=== PATIENT | male | born 1965 | race African-American/Black ===

== ENCOUNTER 2016-09-28 09:40 | Day surgery (SDC) | payer OTHER ==
[2016-09-27 15:02] VITALS: BMI 22.1
[2016-09-28] MEDS ORDERED: PROPOFOL 20 ML ONE ×3 (10:04)
[2016-09-28 10:47] VITALS: TEMP 98.7
[2016-09-28 12:36] VITALS: BP 119/80; PULSE 64
--- NOTE | 2016-09-29 11:41 | PATH ---
Surgical Pathology Report Patient Name: RADHA RAMSAY [facility]. Rec. #: [id number] /Age/Gender: 1965 (Age: 50) / M Account: [id number] Location: [facility]-ENDOSCOPY Taken: 09/28/2016 Received: 09/28/2016 Reported: 09/29/2016 Physicians: Thom Rutherford D.O. Specimen(s) Received BX ANGULARIS/BODY Clinical History Abdominal pain Gastritis Final Diagnosis STOMACH, ANGULARIS AND BODY, BIOPSY: FOCAL MILD CHRONIC GASTRITIS. IMMUNOSTAIN FOR H. PYLORI IS NEGATIVE. Electronically Signed Satish Wetzel M.D. Gross Description Received in formalin, labeled "biopsy angularis/body" are 3 houston, irregular portions of soft tissue ranging from 0.2-0.3 cm. in greatest dimension. The specimens are submitted in toto in one cassette. /09/28/201609/28/2016
== END 2016-09-28 12:36 | disposition home or self-care (01) ==
LOC: JASU-ENDO 09:40
PROVIDERS: ATTEND Internal Medicine Gastroenterology
PROC: 0DB68ZX Excision of Stomach, Via Natural or Artificial Opening Endoscopic, Diagnostic (ICD-10-PCS; principal; 2016-09-28 10:00)
DX: K29.70 Gastritis, unspecified, without bleeding (principal); K31.89 Other diseases of stomach and duodenum
CPT/HCPCS: 88305-TC; 88342-TC

== ENCOUNTER 2016-10-26 09:35 | Day surgery (SDC) | payer OTHER ==
[2016-10-22 15:49] VITALS: BMI 20.9
[2016-10-26 10:51] VITALS: TEMP 97.6
[2016-10-26 11:54] VITALS: BP 115/75; PULSE 67
--- NOTE | 2016-10-27 11:38 | PATH ---
Surgical Pathology Report Patient Name: RADHA RAMSAY [facility]. Rec. #: [id number] /Age/Gender: 1965 (Age: 50) / M Account: [id number] Location: [facility]-ENDOSCOPY Taken: 10/26/2016 Received: 10/26/2016 Reported: 10/27/2016 Physicians: Thom Rutherford D.O. Specimen(s) Received A: CECAL COLON POLYP B: SIGMOID COLON POLYP Clinical History Screening Cecal polyp Final Diagnosis A. COLON, CECUM, POLYP, POLYPECTOMY: TUBULAR ADENOMA. Comment: The cauterized margin of resection appears negative for adenoma. Endoscopic correlations are suggested. B. COLON, SIGMOID, POLYP, POLYPECTOMY: TUBULAR ADENOMA. Electronically Signed Jim Watkins M.D. Gross Description A. Received in formalin labeled "cecal colon polyp" is a 1.0 x 0.7 x 0.6 cm pink-houston, polypoid portion of soft tissue. The base is inked blue and the specimen is bisected and entirely submitted in one cassette. B. Received in formalin, labeled "biopsy sigmoid colon polyp" is a houston, irregular portion of soft tissue measuring 0.4 cm in greatest dimension. The specimen is submitted in toto in one cassette. 10/26/201610/26/2016
== END 2016-10-26 11:54 | disposition home or self-care (01) ==
LOC: JASU-ENDO 09:35
PROVIDERS: ATTEND Internal Medicine Gastroenterology
PROC: 0DBN8ZX Excision of Sigmoid Colon, Via Natural or Artificial Opening Endoscopic, Diagnostic (ICD-10-PCS; 2016-10-26)
PROC: 0DBH8ZX Excision of Cecum, Via Natural or Artificial Opening Endoscopic, Diagnostic (ICD-10-PCS; principal; 2016-10-26 10:30)
DX: Z12.11 Encounter for screening for malignant neoplasm of colon (principal); D12.0 Benign neoplasm of cecum; D12.5 Benign neoplasm of sigmoid colon; K64.8 Other hemorrhoids
CPT/HCPCS: 88305-TC

== ENCOUNTER 2019-05-29 19:28 | Inpatient (IN) | payer OTHER ==
[2019-05-29 19:46] VITALS: BMI 21.4
[2019-05-29] MEDS ORDERED: SODIUM CHLORIDE 1,000 ML IV STA (20:15)
[2019-05-29] MEDS ORDERED: METOCLOPRAMIDE HCL INJECTION 10 MG/2 ML VIAL IVPUSH ONE (20:15)
[2019-05-29] MEDS ORDERED: FAMOTIDINE 20 MG/50 ML IVPB 20 MG/50 ML MG IVPB ONE ×2 (20:15→20:22)
[2019-05-29] MEDS ORDERED: ACETAMINOPHEN 1000 MG/100 ML VIAL (NON FORMULARY) IVPB ONE (20:15)
[2019-05-29] MEDS ORDERED: METOCLOPRAMIDE HCL INJECTION 10 MG/2 ML VIAL ONE (20:22)
[2019-05-29] MEDS ORDERED: ACETAMINOPHEN INJECTION 100 ML IVPB ONE (20:22)
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
[2019-05-29 21:21] LABS: BASO % 1.2 % (0-2.0); HEMOGLOBIN 14.6 GM/dL (11.7-16.9); LYMPH % 23.2 % (8-40); MCH 31.8 pg (25.7-33.7); MCHC 33.1 g/dl (32.0-35.9); MEAN PLT VOLUME 9.6 fl (7.5-11.1); MONO % 6.2 % (3.8-10.2); NEUT % 68.4 % (42.8-82.8); PLATELET COUNT 255 K/MM3 (134-434); RBC 4.58 M/mm3 (4.00-5.60); RDW 13.3 % (11.9-15.9); WHITE BLOOD COUNT 8.9 K/mm3 (4.0-10.0)
[2019-05-29 21:53] LABS: ALBUMIN 4.6 g/dl (3.4-5.0); BILIRUBIN,TOTAL 0.7 mg/dL (0.2-1); BLOOD UREA NITROGEN 20.5 mg/dL (7-18); CALCIUM 10.1 mg/dL (8.5-10.1); CREATININE 0.9 mg/dL (0.55-1.3); TOT PROT 8.4 g/dl (6.4-8.2)
[2019-05-29 21:54] LABS: POTASSIUM 4.2 mmol/L (3.5-5.1)
--- NOTE | 2019-05-30 02:31 | HP ---
<Kathya Mares - Last Filed: 05/30/19 02:41> CHIEF COMPLAINT: Abd pain, vomiting PCP: Dr. Louis Ugalde HISTORY OF PRESENT ILLNESS: Patient is a 53 year old male with PMH of open heart surgery (s/p trauma) and pancreatitis (2010 and 2016 2/2 alcoholism) who presents with progressive epigastric abd pain, nausea, and vomiting x4 months. Patient endorses GI issues since 2010 (he has had 2 bouts of pancreatitis in 2010 and 2016, caused by alcohol use). Several months ago, he began having progressive abd discomfort and vomiting after eating. He complains of constant nausea as well. Pt has lost about 30 pounds in past year. He has been following up with GI (Dr. Miguel) at [facility] for these symptoms since the summer and has received endoscopy, colonoscopy, and multiple imaging. He states that he has never been told of a diagnosis. Pt received an EUS last Tuesday but it was inconclusive due to gastric contents and test was rescheduled for next week. Over the past few days , pt's nausea, vomiting, and abd pain has worsened to the point that he can no longer eat at all, so he came to the ED. Pt denies hx of cancer. He reports that he quit drinking alcohol in the summer when his symptoms worsened. Only medication is occasionaly omeprazole which provides only mild relief of his epigastric pain. Recent Travel: denies PAST MEDICAL HISTORY: As per HPI PAST SURGICAL HISTORY: Open heart surgery s/p trauma Social History: Smokin/4 ppd x 40 year Alcohol: former alcoholic, sober x6 months Drugs: denies Allergies No Known Allergies Allergy (Verified 11/20/16 00:00) HOME MEDICATIONS: Home Medications Medication Instructions Recorded Ranitidine HCl [Zantac] 150 mg PO DAILY #0 tablet 09/28/16 REVIEW OF SYSTEMS CONSTITUTIONAL: loss of appetite, weight change Absent: fever, chills, diaphoresis, generalized weakness, malaise HEENT: Absent: rhinorrhea, nasal congestion, throat pain, throat swelling, difficulty swallowing, mouth swelling, ear pain, eye pain, visual changes CARDIOVASCULAR: Absent: chest pain, syncope, palpitations, irregular heart rate, lightheadedness , peripheral edema RESPIRATORY: Absent: cough, shortness of breath, dyspnea with exertion, orthopnea, wheezing, stridor, hemoptysis GASTROINTESTINAL: abdominal pain, vomiting, nausea Absent: abdominal distension, diarrhea, constipation, melena, hematochezia GENITOURINARY: Absent: dysuria, frequency, urgency, hesitancy, hematuria, flank pain, genital pain MUSCULOSKELETAL: Absent: myalgia, arthralgia, joint swelling, back pain, neck pain SKIN: Absent: rash, itching, pallor HEMATOLOGIC/IMMUNOLOGIC: Absent: easy bleeding, easy bruising, lymphadenopathy, frequent infections ENDOCRINE: Absent: unexplained weight gain, unexplained weight loss, heat intolerance, cold intolerance NEUROLOGIC: Absent: headache, focal weakness or paresthesias, dizziness, unsteady gait, seizure, mental status changes, bladder or bowel incontinence PSYCHIATRIC: Absent: anxiety, depression, suicidal or homicidal ideation, hallucinations. PHYSICAL EXAMINATION Vital Signs - 24 hr 05/29/19 19:40 Temperature 98.4 F Pulse Rate 89 Respiratory 20 Rate Blood Pressure 101/63 O2 Sat by Pulse 99 Oximetry (%) GENERAL: Awake, alert, and fully oriented, in no acute distress. Cachectic and thin appearing. HEAD: Normal with no signs of trauma. EYES: Pupils equal, round and reactive to light, extraocular movements intact, sclera anicteric, conjunctiva clear. No lid lag. EARS, NOSE, THROAT: Ears normal, nares patent, oropharynx clear without exudates. Moist mucous membranes. NECK: Normal range of motion, supple without lymphadenopathy, JVD, or masses. LUNGS: Breath sounds equal, clear to auscultation bilaterally. No wheezes, and no crackles. No accessory muscle use. HEART: Regular rate and rhythm, normal S1 and S2 without murmur, rub or gallop. ABDOMEN: Soft, nontender, not distended, normoactive bowel sounds, no guarding, no rebound, no masses. No hepatomegaly or splenomegaly. MUSCULOSKELETAL: Normal range of motion at all joints. No bony deformities or tenderness. No CVA tenderness. UPPER EXTREMITIES: 2+ pulses, warm, well-perfused. No cyanosis. No clubbing. No peripheral edema. LOWER EXTREMITIES: 2+ pulses, warm, well-perfused. No calf tenderness. No peripheral edema. NEUROLOGICAL: Cranial nerves II-XII intact. Normal speech. Normal gait. PSYCHIATRIC: Cooperative. Good eye contact. Appropriate mood and affect. SKIN: Warm, dry, normal turgor, no rashes or lesions noted, normal capillary refill. Laboratory Results - last 24 hr CBC, BMP 05/29/19 20:42 05/29/19 20:42 ASSESSMENT/PLAN: Patient is a 53 year old male with PMH of open heart surgery (s/p trauma) and pancreatitis (2010 and 2016 2/2 alcoholism) who presents with progressive epigastric abd pain, nausea, and vomiting x4 months. #Acute on chronic pancreatitis Progressive abd pain, nausea, vomiting and Lipase: 2856 CTAP w/contrast: fluid-filled convolued structure in medial aspect of pancreatic head. Nonspecific increased density within lumen of structure representing debris, inspissated bile/ sludge or soft tissue polypoid lesion. MRCP evaluation suggested. Moderate gastric overdistension. Trace pelvic free fluid. Interval development of intrahepatic and extrahepatic biliary tract dilatation. Increased dilatation of main pancreatic duct. Keep pt NPO, hydrate with IV LR @ 200ml/hr IV 2mg morphine prn for pain IV 40mg protonix BID IV zofran for nausea (pending EKG result for QTc) GI consultation (Dr. Bond) F/u triglycerides, lipid panel MRCP w/contrast for further investigation of CT findings #Alcohol abuse Pt has long history of alcohol abuse causing chronic pancreatitis, however reports he is now sober Will treat with thiamine and folate #Smoking hx Nicotine patch Encourage smoking cessation #FEN IV LR @200ml/hr NPO #DVT ppx Heparin sq #Dispo Monitor on med-surg ATTENDING PHYSICIAN STATEMENT I saw and evaluated the patient. I reviewed the resident's note and discussed the case with the resident. I agree with the resident's findings and plan as documented. SUBJECTIVE: OBJECTIVE: ASSESSMENT AND PLAN: <Aly Bowers - Last Filed: 05/30/19 07:10> CHIEF COMPLAINT: PCP: HISTORY OF PRESENT ILLNESS: ER course was notable for: (1) (2) (3) Recent Travel: PAST MEDICAL HISTORY: PAST SURGICAL HISTORY: Social History: Smoking: Alcohol: Drugs: Allergies No Known Allergies Allergy (Verified 11/20/16 00:00) HOME MEDICATIONS: Home Medications Medication Instructions Recorded Ranitidine HCl [Zantac] 150 mg PO DAILY #0 tablet 09/28/16 REVIEW OF SYSTEMS CONSTITUTIONAL: Absent: fever, chills, diaphoresis, generalized weakness, malaise, loss of appetite, weight change HEENT: Absent: rhinorrhea, nasal congestion, throat pain, throat swelling, difficulty swallowing, mouth swelling, ear pain, eye pain, visual changes CARDIOVASCULAR: Absent: chest pain, syncope, palpitations, irregular heart rate, lightheadedness , peripheral edema RESPIRATORY: Absent: cough, shortness of breath, dyspnea with exertion, orthopnea, wheezing, stridor, hemoptysis GASTROINTESTINAL: Absent: abdominal pain, abdominal distension, nausea, vomiting, diarrhea, constipation, melena, hematochezia GENITOURINARY: Absent: dysuria, frequency, urgency, hesitancy, hematuria, flank pain, genital pain MUSCULOSKELETAL: Absent: myalgia, arthralgia, joint swelling, back pain, neck pain SKIN: Absent: rash, itching, pallor HEMATOLOGIC/IMMUNOLOGIC: Absent: easy bleeding, easy bruising, lymphadenopathy, frequent infections ENDOCRINE: Absent: unexplained weight gain, unexplained weight loss, heat intolerance, cold intolerance NEUROLOGIC: Absent: headache, focal weakness or paresthesias, dizziness, unsteady gait, seizure, mental status changes, bladder or bowel incontinence PSYCHIATRIC: Absent: anxiety, depression, suicidal or homicidal ideation, hallucinations. PHYSICAL EXAMINATION Vital Signs - 24 hr 05/29/19 05/30/19 05/30/19 19:40 03:01 04:40 Temperature 98.4 F 98.2 F Pulse Rate 89 50 L Pulse Rate [ 86 Right] Respiratory 20 18 20 Rate Blood Pressure 101/63 100/64 Blood Pressure 107/73 [Right Arm] O2 Sat by Pulse 99 97 Oximetry (%) 05/30/19 05/30/19 05:02 05:04 Temperature Pulse Rate Pulse Rate [ Right] Respiratory 20 20 Rate Blood Pressure Blood Pressure [Right Arm] O2 Sat by Pulse 97 97 Oximetry (%) GENERAL: Awake, alert, and fully oriented, in no acute distress. HEAD: Normal with no signs of trauma. EYES: Pupils equal, round and reactive to light, extraocular movements intact, sclera anicteric, conjunctiva clear. No lid lag. EARS, NOSE, THROAT: Ears normal, nares patent, oropharynx clear without exudates. Moist mucous membranes. NECK: Normal range of motion, supple without lymphadenopathy, JVD, or masses. LUNGS: Breath sounds equal, clear to auscultation bilaterally. No wheezes, and no crackles. No accessory muscle use. HEART: Regular rate and rhythm, normal S1 and S2 without murmur, rub or gallop. ABDOMEN: Soft, nontender, not distended, normoactive bowel sounds, no guarding, no rebound, no masses. No hepatomegaly or splenomegaly. MUSCULOSKELETAL: Normal range of motion at all joints. No bony deformities or tenderness. No CVA tenderness. UPPER EXTREMITIES: 2+ pulses, warm, well-perfused. No cyanosis. No clubbing. No peripheral edema. LOWER EXTREMITIES: 2+ pulses, warm, well-perfused. No calf tenderness. No peripheral edema. NEUROLOGICAL: Cranial nerves II-XII intact. Normal speech. Normal gait. PSYCHIATRIC: Cooperative. Good eye contact. Appropriate mood and affect. SKIN: Warm, dry, normal turgor, no rashes or lesions noted, normal capillary refill. Laboratory Results - last 24 hr 05/29/19 05/29/19 05/29/19 20:42 20:42 20:42 WBC 8.9 RBC 4.58 Hgb 14.6 Hct 44.0 D MCV 96.0 MCH 31.8 MCHC 33.1 RDW 13.3 Plt Count 255 D MPV 9.6 Absolute Neuts (auto) 6.1 Neutrophils % 68.4 D Lymphocytes % 23.2 Monocytes % 6.2 Eosinophils % 1.0 Basophils % 1.2 Nucleated RBC % 0 Sodium 137 Potassium 4.2 Chloride 97 L Carbon Dioxide 33 H Anion Gap 6 L BUN 20.5 H Creatinine 0.9 Est GFR (CKD-EPI)AfAm 113.41 Est GFR (CKD-EPI)NonAf 97.85 Random Glucose 85 Calcium 10.1 Total Bilirubin 0.7 AST 39 H ALT 48 Alkaline Phosphatase 129 H Total Protein 8.4 H Albumin 4.6 Lipase 2856 H ASSESSMENT/PLAN: Visit type - Emergency Visit Emergency Visit: Yes ED Registration Date: 05/30/19 Care time: The patient presented to the Emergency Department on the above date and was hospitalized for further evaluation of their emergent condition. - New Patient This patient is new to me today: Yes Date on this admission: 05/30/19 - Critical Care Critical Care patient: No ATTENDING PHYSICIAN STATEMENT I saw and evaluated the patient. I reviewed the resident's note and discussed the case with the resident. I agree with the resident's findings and plan as documented. 53 year old male with PMH of open heart surgery (s/p trauma), Chronic alcoholic pancreatitis 2010 and 2016 presented to hospital with epigastric pain, nausea , vomiting/ He states that has been having epigastric pain for 3-4 months but for last few days pain has changed. Its more severe and associated with nausea, vomiting reflux like symptoms. He has HX of chronic pancreatitis and follows GI at [facility]. After coming to Ed he was found to have elevated lipase of 2856 Last Vital Signs Temp Pulse Resp BP Pulse Ox 98.2 F 50 L 20 100/64 97 05/30/19 04:40 05/30/19 04:40 05/30/19 05:04 05/30/19 04:40 05/30/19 05:04 GENERAL: Cachectic, NAD HEAD: NC/ AT EYES: Pupils equal, round and reactive to light, extraocular movements intact, sclera anicteric, conjunctiva clear. No lid lag. EARS, NOSE, THROAT: Ears normal, nares patent, oropharynx clear without exudates. Moist mucous membranes. NECK: Normal range of motion, supple without lymphadenopathy, JVD, or masses. LUNGS: Breath sounds equal, clear to auscultation bilaterally. No wheezes, and no crackles. No accessory muscle use. HEART: Regular rate and rhythm, normal S1 and S2 without murmur, rub or gallop. ABDOMEN: Soft, mild epigastric tenderness on deep palpation MUSCULOSKELETAL: Normal range of motion at all joints. No bony deformities or tenderness. No CVA tenderness. Extremities : No edema, peripheral pulses palpable NEUROLOGICAL: Cranial nerves II-XII intact. Normal speech. Normal gait. PSYCHIATRIC: Cooperative. Good eye contact. Appropriate mood and affect. SKIN: Warm, dry, normal turgor, no rashes or lesions noted, normal capillary refill CT abdomen reviewed. Acute on chronic pancreatitis GERD HX of ATOH abuse IV hydration NPO. advance as tolerated GI consult for CT A/p findings and possible MRCP Get records from [facility] Analgesia - Morphine PRN Antiemetics thiamine, folic acid DVt ppx Smiting cessation counselling provided. IV 40mg protonix BID Discussed with resident staff.
[2019-05-30] MEDS ORDERED: FOLIC ACID 1 MG TABLET (FP) PO ONE (02:40)
[2019-05-30] MEDS ORDERED: THIAMINE HCL 100 MG TABLET (FP) PO ONE (02:40)
[2019-05-30] MEDS ORDERED: FOLIC ACID 1 MG TABLET (FP) ONE (03:03)
[2019-05-30] MEDS ORDERED: THIAMINE HCL 100 MG TABLET (FP) ONE (03:03)
[2019-05-30] MEDS: LACTATED RINGERS SOLUTION 1,000 ML IV SCH ×2 (03:14→09:20)
[2019-05-30] MEDS: MORPHINE SULFATE 2 MG/ML VIAL IVPUSH PRN ×4 (03:48→20:50)
[2019-05-30] MEDS: HEPARIN NA (PORCINE) 5,000 UNITS/ML 1ML VIAL SQ SCH ×3 (06:33→22:07)
[2019-05-30 08:10] LABS: BASO % 0.9 % (0-2.0); EOS % 2.7 % (0-4.5); HEMATOCRIT 37.7 % (35.4-49); HEMOGLOBIN 12.9 GM/dL (11.7-16.9); LYMPH % 41.9 % (8-40); MCH 32.1 pg (25.7-33.7); MCHC 34.1 g/dl (32.0-35.9); MEAN PLT VOLUME 9.3 fl (7.5-11.1); MONO % 7.8 % (3.8-10.2); NEUT % 46.7 % (42.8-82.8); PLATELET COUNT 210 K/MM3 (134-434); RBC 4.01 M/mm3 (4.00-5.60); RDW 13.2 % (11.9-15.9); WHITE BLOOD COUNT 7.9 K/mm3 (4.0-10.0)
[2019-05-30 08:39] LABS: ALBUMIN 3.7 g/dl (3.4-5.0); BILIRUBIN,TOTAL 0.9 mg/dL (0.2-1); BLOOD UREA NITROGEN 16.8 mg/dL (7-18); CALCIUM 9.7 mg/dL (8.5-10.1); CREATININE 0.8 mg/dL (0.55-1.3); POTASSIUM 3.2 mmol/L (3.5-5.1); TOT PROT 6.8 g/dl (6.4-8.2)
[2019-05-30] MEDS: NICOTINE 14 MG/24 HOURS TOPICAL PATCH TD SCH (09:20)
--- NOTE | 2019-05-30 09:54 | CON.GI ---
Consult Consult Specialty:: GI Referred by:: Hospitalist Service Reason for Consultation:: Dyspepsia, ? pancreatitis - History of Present Illness Chief Complaint: Nausea, vomiting, Abdominal pain History of Present Illness: 53M admitted through [facility] for evaluation of persistent dyspeptic symptoms over the last 2-3 months (burning, nausea, vomiting). He was admitted in 2017 for abdominal pain compaints. At that time he had CT scan suggestive of acute pancreatitis. He subsequently did not follow-up in my previous office. He was heavily drinking alcohol regularly and was advised to quit. He states last drinking this past summer. He had EGD and colonoscopy in 2017 as well (gastritis , h. pylori negative and two colonic tubular adenomas removed. Repeat colonoscopy 3 years suggested). He does state that he followed up with his PMD Dr. Louis Ugalde who sent him to a form setter helper Dr. Miguel. Mr. Melgar alludes to having had EGD performed by Dr. Miguel 02/15 that was unrevealing. He states that he was given a stomach medication that did not help alleviate his symptoms. He was also referred for EUS by Dr. Lionel Lyon at [facility]. Mr. Melgar goes on to explain that he had the procedure performed 05/25/19 but that it could not be completed secondary to retained food in his stomach. He was rescheduled for next week. As he was frustrated and continued to have symptoms, he came to [facility] as opposed to [facility]. He has blood work performed that revealed normal CBC, Mildly elevated liver chemistries and elevated lipase > 2000. CT scan revealed development of dilated CBD, moderate overdistention of the stomach. Symptoms persist. He last vomited yesterday. He describes a 30 pound weight from 2017. He states that while he has an appetite, he sometimes just "doesn't eat". He continues to smoke cigarettes. There is no family history of colorectal cancer or other GI malignancy. - History Source History Provided By: Patient, Medical Record Limitations to Obtaining History: No Limitations - Past Medical History Gastrointestinal: Yes: Other (Colon polyps (tubular adenomas 2017)) - Past Surgical History Additional Surgical History: Heart surgery for injury (laceration) - Alcohol/Substance Use Hx Alcohol Use: Yes (alcoholism last drank 01/16) History of Substance Use: reports: None - Smoking History Smoking history: Current every day smoker Have you smoked in the past 12 months: Yes Aproximately how many cigarettes per day: 18 - Social History Usual Living Arrangement: Alone ADL: Independent Occupation: Building Attendant Place of : [place] History of Recent Travel: No Home Medications - Allergies Allergies/Adverse Reactions: Allergies Allergy/AdvReac Type Severity Reaction Status Date / Time No Known Allergies Allergy Verified 11/20/16 00:00 - Home Medications Home Medications: Ambulatory Orders Ranitidine HCl [Zantac] 150 mg PO DAILY #0 tablet 09/28/16 Family Medical History Other Family History: Father: : "Old age". Mother: Alive: Healthy. 1 brother: healthy. 1 son: healthy. No family history of colorectal cancer or other GI malignancy Review of Systems - Review of Systems Constitutional: reports: Unintentional Wgt. Loss. denies: Fever Cardiovascular: denies: Chest Pain Respiratory: denies: SOB Gastrointestinal: reports: Indigestion, Nausea, Vomiting. denies: Abdominal Pain Physical Exam-GI Vital Signs: Vital Signs Temperature 98.2 F 05/30/19 04:40 Pulse Rate 50 L 05/30/19 04:40 Respiratory Rate 20 05/30/19 05:04 Blood Pressure 100/64 05/30/19 04:40 O2 Sat by Pulse Oximetry (%) 97 05/30/19 05:04 Constitutional: Yes: Calm Eyes: No: Sclera Icterus Cardiovascular: Yes: Regular Rate and Rhythm Respiratory: Yes: CTA Bilaterally Gastrointestinal Inspection: No: Distention ...Auscultate: Yes: Normoactive Bowel Sounds ...Palpate: Yes: Soft. No: Hepatomegaly, Splenomegaly, Tenderness ...Percussion: No: Tympanitic Edema: No (No LE edema) Neurological: Yes: Alert Labs: CBC, BMP 05/30/19 07:08 05/30/19 07:08 Imaging - Results Cat Scan: Report Reviewed, Image Reviewed Problem List - Problems (1) Acute pancreatitis Assessment/Plan: No evidence of pancreatitis on CT scan, however with biliary tract abnormalities. ? if a head of pancreas mass or ampullary mass with involvement of the duodenum playing a role in radiographic findings / symptomatology Continue NPO for now IV Hydration Monitor LFTS PPI Reordered MRI of the abdomen with and without contrast with MRCP to evaluate both the biliary tract and pancreatic parenchyma further Mr. Melgar had attempted EUS at [facility] last tuesday and is scheduled to have repeat next week. Pending results of MRI and if symptomatically he does not improve, should consider transfer to [facility] to have EUS performed as inpatient. Code(s): K85.90 - ACUTE PANCREATITIS WITHOUT NECROSIS OR INFECTION, UNSP Qualifiers: Pancreatitis type: unspecified pancreatitis type Acute pancreatitis complication: no infection or necrosis Qualified Code(s): K85.90 - Acute pancreatitis without necrosis or infection, unspecified
[2019-05-30] MEDS ORDERED: PANTOPRAZOLE SODIUM 40 MG VIAL IVPUSH SCH (10:00)
--- NOTE | 2019-05-30 11:11 | PN ---
Physical Exam: SUBJECTIVE: Patient seen and examined. He is complaining of abdominal pain and nausea. OBJECTIVE: Vital Signs Period Temp Pulse Resp BP Sys/Mcdonnell Pulse Ox Last 24 Hr 98.2 F-98.4 F 50-89 18-20 100-107/63-73 97-99 GENERAL: The patient is awake, alert, and fully oriented, in no acute distress. LUNGS: Breath sounds equal, clear to auscultation bilaterally, no wheezes, no crackles, no accessory muscle use. HEART: Regular rate and rhythm, S1, S2 without murmur, rub or gallop. ABDOMEN: Soft, (+) mild diffuse tenderness, nondistended, normoactive bowel sounds, no guarding, no rebound, no hepatosplenomegaly, no masses. EXTREMITIES: 2+ pulses, warm, well-perfused, no edema. Laboratory Results - last 24 hr 05/29/19 05/29/19 05/29/19 20:42 20:42 20:42 WBC 8.9 RBC 4.58 Hgb 14.6 Hct 44.0 D MCV 96.0 MCH 31.8 MCHC 33.1 RDW 13.3 Plt Count 255 D MPV 9.6 Absolute Neuts (auto) 6.1 Neutrophils % 68.4 D Lymphocytes % 23.2 Monocytes % 6.2 Eosinophils % 1.0 Basophils % 1.2 Nucleated RBC % 0 Sodium 137 Potassium 4.2 Chloride 97 L Carbon Dioxide 33 H Anion Gap 6 L BUN 20.5 H Creatinine 0.9 Est GFR (CKD-EPI)AfAm 113.41 Est GFR (CKD-EPI)NonAf 97.85 Random Glucose 85 Calcium 10.1 Total Bilirubin 0.7 AST 39 H ALT 48 Alkaline Phosphatase 129 H Total Protein 8.4 H Albumin 4.6 Triglycerides Cholesterol Total LDL Cholesterol HDL Cholesterol Lipase 2856 H 05/30/19 05/30/19 07:08 07:08 WBC 7.9 RBC 4.01 Hgb 12.9 Hct 37.7 MCV 94.0 MCH 32.1 MCHC 34.1 RDW 13.2 Plt Count 210 MPV 9.3 Absolute Neuts (auto) 3.7 Neutrophils % 46.7 D Lymphocytes % 41.9 H D Monocytes % 7.8 Eosinophils % 2.7 D Basophils % 0.9 Nucleated RBC % 0 Sodium 138 Potassium 3.2 L Chloride 98 Carbon Dioxide 31 Anion Gap 9 BUN 16.8 Creatinine 0.8 Est GFR (CKD-EPI)AfAm 119.04 Est GFR (CKD-EPI)NonAf 102.71 Random Glucose 85 Calcium 9.7 Total Bilirubin 0.9 AST 72 H ALT 71 H Alkaline Phosphatase 131 H Total Protein 6.8 Albumin 3.7 Triglycerides 65 Cholesterol 121 Total LDL Cholesterol 47 HDL Cholesterol 66 H Lipase Active Medications Generic Name Dose Route Start Last Admin Trade Name Freq PRN Reason Stop Dose Admin Heparin Sodium (Porcine) 5,000 unit 05/30/19 06:00 05/30/19 06:33 Heparin - SQ 5,000 unit TID MIKE Administration Lactated Ringer's 1,000 mls @ 200 mls/hr 05/30/19 02:45 05/30/19 09:20 Lactated Ringers Solution IV 200 mls/hr ASDIR MIKE Administration Morphine Sulfate 2 mg 05/30/19 02:34 05/30/19 03:48 Morphine Sulfate IVPUSH 2 mg Q4H PRN Administration PAIN LEVEL 6-10 Nicotine 14 mg 05/30/19 10:00 05/30/19 09:20 Nicoderm Patch - TD 14 mg DAILY MIKE Administration Pantoprazole Sodium 40 mg 05/31/19 10:00 Protonix Iv IVPUSH DAILY MIKE ASSESSMENT/PLAN: This is a 53 year old man with a history of heart surgery secondary to trauma, pancreatitis, alcohol abuse who presented to the ED with epigastric pain, nausea , and vomiting x 4 months. 1. Acute pancreatitis - Lipase 2856 but no signs of pancreatitis on CT - CTAP shows intrahepatic and extrahepatic biliary tract dilatation; main pancreatic duct dilatation; fluid-filled convoluted structure along medial aspect of pancreatic head possibly focal dilatation of second portion of duodenal sweep with non-specific mildly increased density within lumen possibly representing debris, inspissated bile/sludge or less likely soft tissue polypoid lesion; moderate gastric over-distention; trace pelvic free fluid - Patient had attempted EUS 05/25 but because of food in his stomach it could not be completed and was rescheduled for next week - Check MRCP 2. Hypokalemia - Replete potassium 3. History of alcohol abuse 4. Nicotine dependence - Continue nicotine patch - Smoking cessation discussed Visit type - Emergency Visit Emergency Visit: Yes ED Registration Date: 05/30/19 Care time: The patient presented to the Emergency Department on the above date and was hospitalized for further evaluation of their emergent condition. - New Patient This patient is new to me today: Yes Date on this admission: 05/30/19 - Critical Care Critical Care patient: No - Discharge Referral Referred to [facility] Med P.C.: No
[2019-05-30] MEDS ORDERED: POTASSIUM CHLORIDE TABS 20 MEQ TABLET.ER (FP) PO ONE (13:02)
[2019-05-30] MEDS: SODIUM CHLORIDE 0.9%/KCL 20 MEQ/1,000 ML INFUS.BAG IV SCH (13:40)
--- NOTE | 2019-05-30 17:26 | EKG ---
Test Reason : Blood Pressure : / mmHG Vent. Rate : 061 BPM Atrial Rate : 061 BPM P-R Int : 152 ms QRS Dur : 100 ms QT Int : 410 ms P-R-T Axes : 071 056 060 degrees QTc Int : 412 ms NORMAL SINUS RHYTHM NORMAL ECG NO PREVIOUS ECGS AVAILABLE Confirmed by DONITA KAMARA, MARLEY ([id number]) on 05/30/2019 5:26:18 PM Referred By: Yair SOLORZANO Confirmed By:MARLEY DUCKWORTH MD
[2019-05-31] MEDS: SODIUM CHLORIDE 0.9%/KCL 20 MEQ/1,000 ML INFUS.BAG IV SCH ×4 (00:07→20:11)
[2019-05-31] MEDS: HEPARIN NA (PORCINE) 5,000 UNITS/ML 1ML VIAL SQ SCH ×2 (05:43→14:00)
[2019-05-31 08:33] LABS: BILIRUBIN,TOTAL 0.8 mg/dL (0.2-1); BLOOD UREA NITROGEN 21.1 mg/dL (7-18); CALCIUM 9.2 mg/dL (8.5-10.1); CREATININE 0.9 mg/dL (0.55-1.3); POTASSIUM 3.5 mmol/L (3.5-5.1); TOT PROT 7.2 g/dl (6.4-8.2)
[2019-05-31] MEDS: NICOTINE 14 MG/24 HOURS TOPICAL PATCH TD SCH (09:40)
[2019-05-31 09:45] LABS: MAGNESIUM 2.1 mg/dL (1.8-2.4)
[2019-05-31] MEDS ORDERED: MULTIVITAMINS (DAILY MVI) TABLET (FP) PO SCH (10:00)
[2019-05-31] MEDS ORDERED: PANTOPRAZOLE SODIUM 40 MG VIAL IVPUSH SCH (10:00)
[2019-05-31] MEDS ORDERED: MAG HYDROX/AL HYDROX/SIMETH 30 ML UNIT-DOSE CUP PO PRN (10:43)
--- NOTE | 2019-05-31 16:10 | PN ---
Progress Note (short form) - Note Progress Note: MRI results noted. Concern for 2nd/3rd portion duodenal obstruction leading to gastric outlet obsstruction. Unclear etiology. ? if related to pancreaticv process or primary duodenal etiology. Discussed with Mr. Melgar. Explained that cancer leading to his current clinical condition will need to be excluded. Advise transfer to [facility] for continued evaluation with possible EUS and where pancreatiocobiliary surgery services are available. He was in agreement with the transfer. D/W housestaff. Advised NGT placement as well given persistent symptomatic gastric distention. Problem List - Problems (1) Acute pancreatitis Code(s): K85.90 - ACUTE PANCREATITIS WITHOUT NECROSIS OR INFECTION, UNSP Qualifiers: Pancreatitis type: unspecified pancreatitis type Acute pancreatitis complication: no infection or necrosis Qualified Code(s): K85.90 - Acute pancreatitis without necrosis or infection, unspecified
[2019-05-31 17:00] VITALS: TEMP 98.1
--- NOTE | 2019-05-31 17:39 | DS ---
Physical Exam: SUBJECTIVE: Patient seen and examined at the bedside. Patient endorses nausea, vomiting, epigastric pain, inability to eat. Patient states that his vomit is clear and that he has some peanuts yesterday that he vomited. Denies hematemesis , or biliary emesis. Denies cp, sob, constipation, diarrhea, headaches, fever, chills, numbness, tingling. OBJECTIVE: Vital Signs Period Temp Pulse Resp BP Sys/Mcdonnell Pulse Ox Last 24 Hr 98.1 F-98.6 F 51-78 15-20 98-116/62-75 98-99 PHYSICAL EXAM GENERAL: The patient is awake, alert, and fully oriented, in mild acute distress. EYES: PERRL, extraocular movements intact, sclera anicteric, conjunctiva clear. ENT: Oropharynx clear without exudates, dry mucous membranes. LUNGS: Breath sounds equal, clear to auscultation bilaterally, no wheezes, no crackles, no accessory muscle use. HEART: Regular rate and rhythm, S1, S2 without murmur, rub. ABDOMEN: Soft, tender in the epigastric region, nondistended, hyperactive bowel sounds, no rigidity, no guarding, no rebound, no masses. EXTREMITIES: 2+ pulses, warm, well-perfused, no edema. NEUROLOGICAL: Cranial nerves II through XII grossly intact. 5/5 muscle strength upper and lower extremities, bilaterally. PSYCH: Normal mood, normal affect. SKIN: Warm, dry, normal turgor, no rashes or lesions noted. LABS Laboratory Results - last 24 hr 05/31/19 06:52 Sodium 139 Potassium 3.5 Chloride 100 Carbon Dioxide 30 Anion Gap 10 BUN 21.1 H Creatinine 0.9 Est GFR (CKD-EPI)AfAm 113.41 Est GFR (CKD-EPI)NonAf 97.85 Random Glucose 69 L Calcium 9.2 Magnesium 2.1 Total Bilirubin 0.8 AST 35 ALT 56 Alkaline Phosphatase 136 H Total Protein 7.2 Albumin 4.0 IMAGING MRCP: Massive distention of the stomach as well as the 1st and 2nd portion of the duodenum with nondistention of the transverse portion. Findings are suspicious for gastric outlet obstruction at the level of the transverse duodenum. Transverse duodenal obstructive stricture/malignancy cannot be excluded. Massive diffuse pancreatic as well as inter and extrahepatic biliary ductal dilatation with heterogeneous appearance of the pancreatic head/uncinate process demonstrating some restricted diffusion. The pancreaticobiliary ductal dilatation could be secondary to the suspected obstructive process in the third portion of the duodenum however underlying pancreatic head/uncinate process malignancy cannot be excluded. ERCP and EUS is recommended. 6 mm focus of anterior right hepatic lobe subcapsular arterial enhancement demonstrating rapid washout with no corresponding T2 signal abnormality or restricted diffusion. Findings possibly represent benign perfusion abnormality however given the findings in the duodenum and pancreatic head, short-term follow-up MRI with contrast in 3 months is recommended. Mild third spacing suggested by mild diffuse mesenteric edema. Significant L5-S1 disc degenerative changes. HOSPITAL COURSE: Saleem Melgar is a 53 year old male with a past medical history of open heart surgery (s/p trauma) and pancreatitis (2010 and 2016 2/2 alcoholism) who was admitted with progressive epigastric abdominal pain, nausea, and vomiting x4 months. Patient had elevated lipase 2856 on admission. CTAP w/contrast noting: fluid-filled convolued structure in medial aspect of pancreatic head. Nonspecific increased density within lumen of structure representing debris, inspissated bile/sludge or soft tissue polypoid lesion, moderate gastric overdistension, trace pelvic free fluid, Interval development of intrahepatic and extrahepatic biliary tract dilatation, increased dilatation of main pancreatic duct. MRCP was performed and showed results as above. Patient was placed on IV Protonix, Zofran, morphine for pain. Seen by GI and advised for transfer to [facility] to the service of Dr. Lionel Lyon for EUS and possible necessity for pancreaticobiliary surgical services. Patient was agreeable to transfer and transfer was initiated. NGT was placed for decompression. Patient was advised to follow the recommendations made at [facility]. Patient signed consent for transfer. Patient was discharged in stable medical condition. Date of Admission:05/30/19 Date of Discharge: 05/31/19 Minutes to complete discharge: 40 Discharge Summary Problems reviewed: Yes Reason For Visit: ACUTE PANCREATITIS Condition: Stable - Instructions Diet, Activity, Other Instructions: Saleem Melgar is a 53 year old male with a past medical history of open heart surgery (s/p trauma), pancreatitis (2010 and 2016 2/2 alcoholism) was admitted to the hospital because of epigastric pain. MRCP with report of: Massive distention of the stomach as well as the 1st and 2nd portion of the duodenum with nondistention of the transverse portion. Findings are suspicious for gastric outlet obstruction at the level of the transverse duodenum. Transverse duodenal obstructive stricture/malignancy cannot be excluded. Massive diffuse pancreatic as well as inter and extrahepatic biliary ductal dilatation with heterogeneous appearance of the pancreatic head/uncinate process demonstrating some restricted diffusion. The pancreaticobiliary ductal dilatation could be secondary to the suspected obstructive process in the third portion of the duodenum however underlying pancreatic head/uncinate process malignancy cannot be excluded. ERCP and EUS is recommended. 6 mm focus of anterior right hepatic lobe subcapsular arterial enhancement demonstrating rapid washout with no corresponding T2 signal abnormality or restricted diffusion. Findings possibly represent benign perfusion abnormality however given the findings in the duodenum and pancreatic head, short-term follow-up MRI with contrast in 3 months is recommended. Mild third spacing suggested by mild diffuse mesenteric edema. Significant L5-S1 disc degenerative changes. Patient seen by GI at this facility and also recommended transfer to [facility] for EUS and possible pantreaticobiliary surgery services. Patient agreeable to transfer to [facility] for continued treatment. Disposition: TRANSFER ACUTE CARE/OTHER HOSP - Home Medications Comprehensive Discharge Medication List: Ambulatory Orders Ranitidine HCl [Zantac] 150 mg PO DAILY #0 tablet 09/28/16 Problem List - Problems (1) Gastric outlet obstruction Code(s): K31.1 - ADULT HYPERTROPHIC PYLORIC STENOSIS (2) Dilation of biliary tract Code(s): K83.8 - OTHER SPECIFIED DISEASES OF BILIARY TRACT (3) Dilation of pancreatic duct Code(s): K86.89 - OTHER SPECIFIED DISEASES OF PANCREAS (4) Tobacco dependence Code(s): F17.200 - NICOTINE DEPENDENCE, UNSPECIFIED, UNCOMPLICATED This patient is new to me today: Yes Date on this admission: 05/31/19 Emergency Visit: Yes ED Registration Date: 05/30/19 Care time: The patient presented to the Emergency Department on the above date and was hospitalized for further evaluation of their emergent condition. Critical Care patient: No - Discharge Referral Referred to [facility] Med P.C.: No
--- NOTE | 2019-05-31 19:14 | PN ---
Teaching Attending Note Name of Resident: Altaf Prasad ATTENDING PHYSICIAN STATEMENT I saw and evaluated the patient. I reviewed the resident's note and discussed the case with the resident. I agree with the resident's findings and plan as documented. SUBJECTIVE: Complains of burning epigastric pain, nausea, vomiting this AM. No hematemesis. OBJECTIVE: Afebrile, Hemodynamically stable. Last Vital Signs Temp Pulse Resp BP Pulse Ox 98.1 F 51 L 20 116/72 99 05/31/19 16:59 05/31/19 16:59 05/31/19 16:59 05/31/19 16:59 05/31/19 09:00 HEENT - Atraumatic, Normocephalic. Heart - S1, S2, RRR Lungs - clear to auscultation Abdomen - Soft, non-tender. Bowel Sounds normal Extremities - no edema, no calf tenderness. Neuro - AAO x 3. Tone/Power normal all extremities. Laboratory Results - last 24 hr 05/31/19 06:52 Sodium 139 Potassium 3.5 Chloride 100 Carbon Dioxide 30 Anion Gap 10 BUN 21.1 H Creatinine 0.9 Est GFR (CKD-EPI)AfAm 113.41 Est GFR (CKD-EPI)NonAf 97.85 Random Glucose 69 L Calcium 9.2 Magnesium 2.1 Total Bilirubin 0.8 AST 35 ALT 56 Alkaline Phosphatase 136 H Total Protein 7.2 Albumin 4.0 Current Medications Generic Name Dose Route Start Last Admin Trade Name Freq PRN Reason Stop Dose Admin Al Hydroxide/Mg Hydroxide 30 ml 05/31/19 10:43 05/31/19 14:03 Mylanta Oral Suspension - PO 30 ml TID PRN Administration DYSPEPSIA Heparin Sodium (Porcine) 5,000 unit 05/30/19 06:00 05/31/19 14:00 Heparin - SQ 5,000 unit TID MIKE Administration Potassium Chloride/Sodium Chloride 20 meq in 1,000 mls @ 100 mls/hr 05/30/19 13:15 05/31/19 13:38 Ns+20 Meq Kcl - IV Not Given ASDIR MIKE Morphine Sulfate 2 mg 05/30/19 02:34 05/30/19 20:50 Morphine Sulfate IVPUSH 2 mg Q4H PRN Administration PAIN LEVEL 6-10 Nicotine 14 mg 05/30/19 10:00 05/31/19 09:40 Nicoderm Patch - TD 14 mg DAILY MIKE Administration Pantoprazole Sodium 40 mg 05/31/19 10:00 05/31/19 09:40 Protonix Iv IVPUSH 40 mg DAILY MIKE Administration Home Medications Medication Instructions Recorded Ranitidine HCl [Zantac] 150 mg PO DAILY #0 tablet 09/28/16 ASSESSMENT AND PLAN: 53 year old mle with a history of heart surgery secondary to trauma, Hx of pancreatitis, alcohol abuse who presented to the ED with epigastric pain, nausea , and vomiting x 4 months. 1. 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 obstructing mass transverse duodenum Evaluated by GI - recommended for transfer to [facility] for EUS/ERCP by Dr. Lyon. 2. Hypokalemia - repleted. 3. History of alcohol abuse - no evidence of withdrawal. 4. Nicotine dependence - Continue nicotine patch GI Px- PPI Medicaly stable for transfer to [facility] for further Ix.
[2019-06-01 01:01] VITALS: BP 108/79; PULSE 80
== END 2019-05-31 20:40 | disposition short-term general hospital (02) | DRG 282 ==
LOC: JER 19:28 → JERBED 05-30 02:03 → J8W 05-30 03:26
PROVIDERS: ADMIT Internal Medicine
DX: K85.20 Alcohol induced acute pancreatitis without necrosis or infection (principal); K31.1 Adult hypertrophic pyloric stenosis; R64 Cachexia; Z68.21 Body mass index [BMI] 21.0-21.9, adult; E87.6 Hypokalemia; K86.0 Alcohol-induced chronic pancreatitis; F10.10 Alcohol abuse, uncomplicated; K21.9 Gastro-esophageal reflux disease without esophagitis; F17.210 Nicotine dependence, cigarettes, uncomplicated
CPT/HCPCS: 36415; 71045-TC-FY; 74177-TC; 74183-TC; 80053; 80061; 83690; 83721; 83735; 85025; 93005; 93010; 99283-25; A9579; J0131; J1644; J7030; Q9967

== ENCOUNTER → 2020-06-11 | Day surgery (SDC) | payer OTHER ==
[2020-06-09 16:12] VITALS: BMI 18.6
[2020-06-11 13:01] VITALS: PULSE 71
[2020-06-11 13:24] VITALS: BP 105/65; TEMP 98
== END | disposition home or self-care (01) ==
LOC: FASU 11:40
PROVIDERS: ATTEND Internal Medicine Gastroenterology
PROC: 0DBL8ZX Excision of Transverse Colon, Via Natural or Artificial Opening Endoscopic, Diagnostic (ICD-10-PCS; 2020-06-11)
PROC: 0DBP8ZX Excision of Rectum, Via Natural or Artificial Opening Endoscopic, Diagnostic (ICD-10-PCS; 2020-06-11)
PROC: 0DBM8ZX Excision of Descending Colon, Via Natural or Artificial Opening Endoscopic, Diagnostic (ICD-10-PCS; 2020-06-11)
PROC: 0DBK8ZX Excision of Ascending Colon, Via Natural or Artificial Opening Endoscopic, Diagnostic (ICD-10-PCS; principal; 2020-06-11 12:26)
DX: K52.839 Microscopic colitis, unspecified (principal); K64.1 Second degree hemorrhoids; K57.30 Diverticulosis of large intestine without perforation or abscess without bleeding; R19.4 Change in bowel habit
CPT/HCPCS: 88305-TC; 88313-TC; 88342-TC